=== PATIENT | male | born 1965 | race Two or more races ===

== ENCOUNTER 2017-09-15 12:42 | Emergency (ER) | payer SELFPAY ==
[2017-09-15] MEDS ORDERED: Ketorolac 30 MG/ML SDV IVPUSH ONE (12:43)
[2017-09-15] MEDS ORDERED: Aspirin 81 MG Tab.Chew PO ONE (12:46)
--- NOTE | 2017-09-15 12:46 | EDM.PDOC ---
ED HPI GENERAL MEDICAL PROBLEM - General Chief Complaint: Chest Pain Stated Complaint: CHEST PAIN Time Seen by Provider: 09/15/17 12:42 Source of Information: Reports: Patient History Limitations: Reports: No Limitations - History of Present Illness INITIAL COMMENTS - FREE TEXT/NARRATIVE: HISTORY AND PHYSICAL: History of present illness: Patient is a 51-year-old male who presents to the emergency room with complaints of midsternal chest pain that woke him up at 2 AM this morning. He attributes this pain to falling twice yesterday due to slippery ice "or maybe because I've had a cold for the past 3 days". He reports that the falls were mechanical (due to ice), he denies any dizziness, chest pain or shortness of breath during this time. Has had nasal congestion, sore throat, and intermittent chest pressure x 3 days. A 2 am he was woke up with midsternal chest pain that radiates into his neck. Currently the pain is reproducible with palpation and deep breathing. Denies any shortness of breath, dyspnea, nausea, vomiting or diarrhea. Denies any headache, change in vision, fever or chills. Reports he has a history of type 2 diabetes which is supposed to be controlled with diet. He jokes and states that he has not been managing his blood sugars as directed. Denies any personal or family history of heart disease. Denies any history of smoking. Review of systems: As per history of present illness and below otherwise all systems reviewed and negative. Past medical history: As per history of present illness and as reviewed below otherwise noncontributory. Surgical history: As per history of present illness and as reviewed below otherwise noncontributory. Social history: No reported history of drug or alcohol abuse. Family history: As per history of present illness and as reviewed below otherwise noncontributory. Physical exam: General: Well-developed and well-nourished 51-year-old male. Alert and oriented. Nontoxic appearing and in no acute distress. HEENT: Atraumatic, normocephalic, pupils reactive, negative for conjunctival pallor or scleral icterus, mucous membranes moist, throat clear, neck supple, nontender, trachea midline. Lungs: Clear to auscultation, breath sounds equal bilaterally, chest tender with palpation. Heart: S1S2, regular rate and rhythm Abdomen: Soft, nondistended, nontender. Negative for masses or hepatosplenomegaly. Negative for costovertebral tenderness. Pelvis: Stable nontender. Genitourinary: Deferred. Rectal: Deferred. Extremities: Atraumatic, negative for cords or calf pain. Neurovascular unremarkable. Neuro: Awake, alert, oriented. Cranial nerves II through XII unremarkable. Cerebellum unremarkable. Motor and sensory unremarkable throughout. Exam nonfocal. Pain is 0/10. Laboratory results, EKG and chest x-ray were reviewed with the patient. I did encourage him to stay for observation. We reviewed risks of him leaving, which include cardiac injury or even . Patient accepts those risks. We'll discharge patient to home, encouraged him to use an aspirin daily. We reviewed his elevated blood sugars, he states that he ate prior to coming to the emergency room and believes that that is why his blood sugars elevated. Regardless, he does need to follow up with the primary care provider for further management. He voices understanding. Reviewed signs and symptoms that would prompt him to come back to the emergency room. Patient voices understanding and is agreeable to plan of care. He denies any questions at this time. Diagnostics: CBC, CMP, troponin, EKG, chest x-ray Therapeutics: Aspirin, Toradol Impression: Chest pain, likely musculoskeletal Plan: 1. Please start a baby aspirin once daily. 2. Follow-up with your primary care provider to evaluate your elevated blood sugars, and further management. 3. As we discussed please return to the emergency room if symptoms return, worsen or new symptoms develop. Definitive disposition and diagnosis as appropriate pending reevaluation and review of above. Duration: Day(s): Location: Reports: Chest Chest Pain Score (Numeric/FACES): 1 - Related Data Allergies Allergy/AdvReac Type Severity Reaction Status Date / Time No Known Allergies Allergy Verified 09/15/17 12:43 Home Meds: Home Meds . [No Known Home Meds] 09/15/17 [History] ED ROS GENERAL - Review of Systems Review Of Systems: ROS reveals no pertinent complaints other than HPI. ED EXAM, GENERAL - Physical Exam Exam: See Below (See dictation) Course - Vital Signs Last Recorded V/S: Last Vital Signs Temp 98.8 F 09/15/17 12:43 Pulse 89 09/15/17 12:43 Resp 18 09/15/17 12:43 BP 166/92 H 09/15/17 12:43 Pulse Ox 98 09/15/17 12:43 - Orders/Labs/Meds Orders: Active Orders 24 hr Category Date Time Status EKG Documentation Completion [RC] STAT Care 09/15/17 12:43 Active Labs: Laboratory Tests 09/15/17 09/15/17 Range/Units 12:32 12:32 WBC 12.50 H (4.0-11.0) K/uL RBC 5.35 (4.50-5.90) M/uL Hgb 16.7 (13.0-17.0) g/dL Hct 47.4 (38.0-50.0) % MCV 88.6 (80.0-98.0) fL MCH 31.2 (27.0-32.0) pg MCHC 35.2 (31.0-37.0) g/dL RDW Std Deviation 39.5 (28.0-62.0) fl RDW Coeff of Clau 13 (11.0-15.0) % Plt Count 242 (150-400) K/uL MPV 10.70 (7.40-12.00) fL Neut % (Auto) 65.8 (48.0-80.0) % Lymph % (Auto) 23.3 (16.0-40.0) % [place] % (Auto) 10.6 (0.0-15.0) % Eos % (Auto) 0.1 (0.0-7.0) % Baso % (Auto) 0.2 (0.0-1.5) % Neut # (Auto) 8.2 H (1.4-5.7) K/uL Lymph # (Auto) 2.9 H (0.6-2.4) K/uL [place] # (Auto) 1.3 H (0.0-0.8) K/uL Eos # (Auto) 0.0 (0.0-0.7) K/uL Baso # (Auto) 0.0 (0.0-0.1) K/uL Nucleated RBC % 0.0 /100WBC Nucleated RBCs # 0 K/uL Sodium 135 L (136-148) mmol/L Potassium 3.8 (3.5-5.1) mmol/L Chloride 100 (98-107) mmol/L Carbon Dioxide 26.7 (21.0-32.0) mmol/L BUN 14 (7.0-18.0) mg/dL Creatinine 0.8 (0.8-1.3) mg/dL Est Cr Clr Drug Dosing 124.16 mL/min Estimated GFR (MDRD) > 60.0 ml/min Glucose 246 H (74-106) mg/dL Calcium 9.7 (8.5-10.1) mg/dL Total Bilirubin 1.4 H (0.2-1.0) mg/dL AST 23 (15-37) U/L ALT 39 (14-63) U/L Alkaline Phosphatase 107 (46-116) U/L Troponin I < 0.050 (0.000-0.056) ng/mL Total Protein 7.6 (6.4-8.2) g/dL Albumin 4.1 (3.4-5.0) g/dL Globulin 3.5 (2.0-3.5) g/dL Albumin/Globulin Ratio 1.2 L (1.3-2.8) Meds: Medications Discontinued Medications Generic Name Dose Route Start Last Admin Trade Name Freq PRN Reason Stop Dose Admin Aspirin 324 mg 09/15/17 12:46 09/15/17 13:18 Aspirin PO 09/15/17 12:47 324 mg ONETIME ONE Administration Ketorolac Tromethamine 30 mg 09/15/17 12:43 09/15/17 13:20 Toradol IVPUSH 09/15/17 12:44 Not Given ONETIME ONE Departure - Departure Time of Disposition: 13:40 Disposition: Home, Self-Care 01 Clinical Impression: Nonspecific chest pain Instructions: Nonspecific Chest Pain, [id number] Forms: ED Department Discharge Additional Instructions: My general discharge The following information is given to patients seen in the emergency department who are being discharged to home. This information is to outline your options for follow-up care. We provide all patients seen in our emergency department with a follow-up referral. The need for follow-up, as well as the timing and circumstances, are variable depending upon the specifics of your emergency department visit. If you don't have a primary care physician on staff, we will provide you with a referral. We always advise you to contact your personal physician following an emergency department visit to inform them of the circumstance of the visit and for follow-up with them and/or the need for any referrals to a consulting specialist. The emergency department will also refer you to a specialist when appropriate. This referral assures that you have the opportunity for follow-up care with a specialist. All of these measure are taken in an effort to provide you with optimal care, which includes your follow-up. Under all circumstances we always encourage you to contact your private physician who remains a resource for coordinating your care. When calling for follow-up care, please make the office aware that this follow-up is from your recent emergency room visit. If for any reason you are refused follow-up, please contact the [facility] Emergency Department at and asked to speak to the emergency department charge nurse. [facility] [address] [place] [id number] 1. Please start a baby aspirin, 81mg once daily (heart protective). 2. Follow-up with your primary care provider to evaluate your elevated blood sugars, and further management. 3. As we discussed please return to the emergency room if symptoms return, worsen or new symptoms develop. - My Orders Last 24 Hours: My Active Orders 09/15/17 12:43 EKG Documentation Completion [RC] STAT - Assessment/Plan Last 24 Hours: My Active Orders 09/15/17 12:43 EKG Documentation Completion [RC] STAT
--- NOTE | 2017-09-15 13:14 | CR ---
EXAMINATION: Two-view chest (PA and Lateral views). HISTORY: Chest pain. FINDINGS: The trachea is midline. The cardiomediastinal silhouette is within normal limits. No pulmonary infilt rates, effusions or pneumothorax. Osseous structures appear unremarkable. IMPRESSION: No acute cardiopulmonary process.
[2017-09-15 13:24] LABS: CHLORIDE,CL 100 mmol/L (98-107); SODIUM,NA 135 mmol/L (136-148)
== END 2017-09-15 13:55 | disposition home or self-care (01) ==
LOC: MW.ED 12:42
DX: R07.89 Other chest pain (principal)
CPT/HCPCS: 71046; 80053; 84484; 85025; 99285; A9270; 99284